=== PATIENT | male | born 2000 | race Caucasian/White ===

== ENCOUNTER → 2023-09-11 | Outpatient (CLI) | payer MEDICAID, SELFPAY ==
[2023-09-11 09:55] LABS: Bacteria 0 SEEN /hpf (None Seen); Mucous, Urine 0 SEEN /hpf (<or=2+); Squamous Epithelial Cells - UA 0 SEEN /hpf (0-5); White Blood Cells 0 SEEN /hpf (0-5)
[2023-09-11 12:00] LABS: Color, Urine Yellow (Yellow); Glucose, Dipstick Normal (Normal); Ketone-Dipstick Negative (Negative); Leukocyte Esterase-Dipstick Negative /ul (Negative); Nitrite-Dipstick Negative (Negative); Occult Blood-Urine 10 /ul (Negative); Protein-Dipstick Negative (Negative); Urine Bilirubin Dipstick Negative (Negative); Urine Clarity Clear (Clear); Urine Urobilinogen Normal (Normal)
[2023-09-11 12:00] LABS: Absolute Lymphocyte Count 1.47 X10^3/uL (0.83-4.51); Absolute Neutrophil Count 2.1 X10^3/uL (2.0-7.7); Basophil# 0.01 X10^3/uL; Basophil% 0.2 % (0-1); Eosinophil# 0.07 X10^3/uL; Eosinophils% 1.7 % (0-5); Hematocrit 46.8 % (40-54); Hemoglobin 16.1 g/dL (13.0-16.5); Lymphocyte # 1.47 X10^3/ul (0.83-4.51); Lymphocyte % 36.1 % (19-41); Mean Corp Hgb Conc 34.4 g/dL (32-36); Mean Corpuscular Hgb 31.4 pg (27.0-32.0); Mean Corpuscular Volume 91.4 fL (80-94); Mean Platelet Vol. 11.5 fl (6.2-12.0); Monocyte# 0.43 X10^3/uL; Monocyte% 10.6 % (0-10); NRBC Flagged by Analyzer 0 % (0-5); Neutrophil # 2.09 X10^3/uL (2.7-7.7); Neutrophil % 51.4 % (47-70); Platelet Count 196 K/mm3 (150-450); RBC Distribution Width CV 11.9 % (11.6-14.6); RBC Distribution Width SD 39.9 fl (35.1-43.9); Red Blood Count 5.12 M/mm3 (4.6-6.2); White Blood Count 4.1 K/mm3 (4.4-11.0)
[2023-09-11 12:17] LABS: Red Blood Cells-Urine 0-5 SEEN /hpf (0-5)
[2023-09-11 13:02] LABS: Thyroid Stim Hormone (TSH) 0.96 uIU/mL (0.358-3.74)
== END | disposition home or self-care (01) ==
LOC: MFPLAB 09:47
PROVIDERS: Visit Provider Family Medicine
DX: F17.200 Nicotine dependence, unspecified, uncomplicated (principal); F41.9 Anxiety disorder, unspecified
CPT/HCPCS: 36415; 81001; 84443; 85025

== ENCOUNTER 2024-08-12 18:54 | Emergency (ER) | payer SELFPAY ==
[2024-08-12 18:56] VITALS: BP 106/69; PULSE 55; RESP 16; TEMP 36.7; O2SAT 100; BMI 26.9
--- NOTE | 2024-08-12 19:37 | CM.ED ---
Social work Reason for referral: no PCP/self-pay insurance Referral source: case find This SW identified patient's lack of PCP and lack of insurance. This SW entered patient's [facility] treatment area, introducing self and role at [facility]. Patient accepted SW visit, confirming lack of PCP due to lack of medical insurance. Patient stated being in between jobs currently and currently without insurance. Patient declined need for Medicaid application, but accepted resource of [facility] information. Patient denied other needs at this time. Coreen Tang, CHIEF DATA OFFICER, [employer] DEVELOPER
--- NOTE | 2024-08-12 20:57 | EDS_ITS ---
HPI History of Present Illness Chief Complaint: Other, Pain/Inj Detail of Chief Complaint: Concern for possible STD exposure. No symptoms. Informant: patient Narrative Narrative: Healthy 24-year-old male. No dyspnea past medical history. Denies any prior sexually transmitted disease history. Had unprotected sex over the weekend. He is concerned he may have been exposed. He is having no symptoms. No discharge. No dysuria. No rash or lymphadenopathy. Prior similar symptoms: No Recent Illness/Hospitalization: No PFSH PFSH Medical History no medical history no medical history Allergy/AdvReac Type Severity Reaction Status Date / Time No Known Allergies Allergy Verified 08/12/24 19:01 no surgical history Social History Smoking Status: Never smoker ROS ROS ED ROS Narrative Denies any recent illness. Constitutional Constitutional ED: Denies chills or fever(s) Eyes Eyes: Denies blurry vision ENT ENT ED: Denies ear pain Cardiovascular Cardiovascular: Denies chest pain Respiratory/Chest Respiratory/Chest: Denies cough Gastrointestinal Gastrointestinal: Denies abdominal pain Genitourinary Genitourinary ED: Denies dysuria or hematuria Musculoskeletal Musculoskeletal: Denies arthralgias Integumentary Denies abscess Neurologic Neurologic: Denies headache(s) Psychiatric Psychiatric: Denies anxiety Endocrine Endocrinology: Denies polydipsia Hematologic/Lymphatic Hematologic/Lymphatic: Denies easy bleeding, easy bruising or lymphadenopathy Allergic/Immunologic Allergic/Immunologic ED: Denies mouth swelling, tongue swelling or urticaria EXAM Physical Exam Narrative Exam Narrative: 24-year-old male no acute distress. Vital signs stable afebrile. H EENT exam normal. Moist mucous membranes. No blistering. Neck nontender no lymphad enopathy. Lungs clear to auscultation bilaterally. Heart regular rhythm no murmur. Abdomen soft nontender. Moving all 4 extremities. Nontender no edema. Skin no rashes. Patient was in a hallway. He was not having any urinary symptoms and said he had no rash. I could not do a exam. Const Vital Signs: 08/12/24 18:56 08/12/24 19:31 Temperature 98.1 F Temperature Source Temporal Pulse Rate 55 L Respiratory Rate 16 Respiratory Effort Normal Non-Labored Respiratory Pattern Normal Blood Pressure 106/69 Blood Pressure Mean 81 Pulse Ox 100 Oxygen Delivery Method Room Air Positive well nourished and well developed; Negative for obese, cachectic, cont ractures or unkempt General Appearance ED: well developed and NAD; Negative for unkempt, cachectic, contractures or pallor Nutritional Appearance: Negative for cachectic or obese HEENT Reports moist mucous membranes normocephalic and atraumatic; Negative for trauma or tenderness Eyes PERRL and EOMs intact bilaterally General Eye ED: Negative for pale conjunctiva or scleral icterus Neck no lymphadenopathy, supple and no JVD General: Negative for tenderness Resp normal respiratory effort and clear to auscultation bilaterally Effort and Inspection: Negative for retractions Auscultation: Negative for rales, rhonchi, wheezes or diminished lung sounds Cardio regular rate, regular rhythm, S1 normal heart sound, S2 normal heart sound and no murmurs Rate: Negative for bradycardia or tachycardic Rhythm: Negative for abnormal rhythm Heart Sounds: Negative for other GI non-tender, non-distended and no masses Inspection: Negative for abdominal distention Auscultation: normoactive bowel sounds Palpation: soft; Negative for tender or guarding no CVA tenderness Back/Spine no CVA tenderness General Back: Negative for CVA tenderness Cervical Spine: Negative for cervical spine tenderness Thoracic Spine / Upper Back: Negative for thoracic spinal tenderness Lumbar Spine / Lower Back: Negative for lumbar spinal tenderness Extremity normal to inspection General Extremety ED: Yes tenderness; Negative for edema or pulses abnormal General Extremity: Negative for edema or pulses abnormal Neuro oriented x3, CN's II-XII intact bilaterally, moves all extremities and no focal motor deficits Sensorium / Orientation: alert, oriented to person, oriented to place and oriented to time; Negative for orientation impaired, confused or lethargic Motor Exam: strength 5/5 throughout Psych mental status grossly normal Appearance: Negative for unkempt Thought Process: normal thought process Skin General Skin Exam: Negative for jaundice or pallor Lesions: no lesions Rashes: no rashes MDM MDM MDM Narrative Medical decision making narrative: 24-year-old male concern for possible STD exposure. No symptoms. He and I discussed testing. He did not want any testing done tonight. He understood that most likely with no symptoms it was going to be negative. He understood that HIV was a send out. He states he will follow-up if he starts having any symptoms. I did offer him pretreatment with Zithromax and Rocephin and he deferred at this time. He left prior to getting any discharge paperwork. Discharge Plan Triage Chief Complaint: Other, Pain/Inj ED Provider: Raul Gayle Dx/Rx/DC Orders Clinical Impression: Concern about STD in male without diagnosis Instructions: ED Testing for Suspected STI Primary Care Provider: Care Physician,No Primary Referrals: Care Physician,No Primary [Primary Care Provider] - Selena Tejeda, AUTOMOTIVE REFINISHER-C [[facility]] - As Needed Activity Restrictions/Additional Instructions: If you want sexually transmitted disease testing follow-up with the [facility]. Print Language: Kinyarwanda Disposition Disposition: Home, Self Care
== END 2024-08-12 21:10 | disposition home or self-care (01) ==
PROVIDERS: Emergency Provider Emergency Medicine; Visit Provider Emergency Medicine
DX: Z20.2 Contact with and (suspected) exposure to infections with a predominantly sexual mode of transmission (principal)
CPT/HCPCS: 99282

== ENCOUNTER 2025-04-30 00:42 | Emergency (ER) | payer SELFPAY ==
[2025-04-30 00:43] VITALS: BP 133/84; PULSE 86; RESP 16; TEMP 36.4; O2SAT 100; BMI 24.6
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
[2025-04-30 01:00] VITALS: BP 123/83; PULSE 60; RESP 16; TEMP 36.4; O2SAT 99
--- OUTSIDE RECORDS SUMMARY | 2025-04-30 01:08 | XMS RPT_ITS | CCD ---
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 above: Order Comment: Order Date: 09/11/23 Order Info: 183- - CBCD Performed By: #### L 100.0100, L501.9520 #### [facility] [address] [place], [address] Platelets (Bld) [#/Vol] 196 10*3/uL Normal 150-450 [facility] Comment on above: Order Comment: Order Date: 09/11/23 Order Info: 183-06 - CBCD Performed By: #### L 100.0100, L501.9520 #### [facility] [address] [place], [address] Determination of erythrocyte mean corpuscular volume (MCV)Ordered By: Rahat Canela on 09-11-2023 MCV (RBC) [Entitic vol] 91.4 fL Normal 80-[address] [facility] Comment on above: Order Comment: Order Date: 09/11/23 Order Info: 183-06 - CBCD Performed By: #### L 100.0100, L501.9520 #### [facility] [address] [place], [address] Erythrocyte distribution wid th ratioOrdered By: Rahat Canela on 09-11-2023 Erythrocyte distribution width (RBC) [Ratio] 11.9 % Normal 11.6-14.6 [facility] Comment on above: Order Comment: Order Date: 09/11/23 Order Info: 183-06 - CBCD Performed By: #### L 100.0100, L501.9520 #### [facility] [address] [place], [address] Erythrocyte distribution wid th standard deviationOrdered By: Rahat Canela on 09-11-2023 Erythrocyte distribution width (RBC) [Entitic vol] 39.9 fL 35.1-43.9 [facility] Immature granulocytes/100 WB C Auto (Bld)Ordered By: Rahat Canela on 09-11-2023 Immature granulocytes/100 WBC (Bld) 0.000 % 0.0-0.9 [facility] Comment on above: IG% - Immature Granu locytes (promyelocytes, myelocytes and metamyelocytes) > 1% indicates that a LEFT SHIFT is Present. Ketones Test strip Ql (U)Ord ered By: Rahat Canela on 09-11-2023 Ketones Ql (U) Negative Negative [facility] - Hematology and Cell countsOrdered By: Rahat Canela on 09-11-2023 Nucleated RBC/100 WBC (Bld) [Ratio] 0 % 0-5 [facility] Mucus LM Ql (Urine sed)Order ed By: Rahat Canela on 09-11-2023 Mucus Ql (Urine sed) 0 SEEN /hpf [facility] Nitrite Test strip Ql (U)Ord ered By: Rahat Canela on 09-11-2023 Nitrite Ql (U) Negative Negative [facility] No Panel InformationOrdered By: Rahat Canela on 09-11-2023 Urine RBC 0-5 SEEN /hpf 0-5 [facility] Protein Test strip Ql (U)Ord ered By: Rahat Canela on 09-11-2023 Protein Ql (U) Negative Negative [facility] Serum or plasma thyroid stim ulating hormone (TSH) measurement (units/volume)Ordered By: Rahat Canela on 09-11-2023 TSH Qn 0.96 uIU/mL 0.358-3.74 [facility] Squamous epithelial cells de tection in urine sediment by light microscopyOrdered By: Rahat Canela on 09-11-2023 Epithelial cells.squamous LM Ql (Urine sed) 0 SEEN /hpf 0-5 [facility] Thyroid Stim Hormone (TSH)on 09-11-2023 TSH 0.96 uIU/mL Normal 0.358-3.74 [facility] Comment on above: Order Comment: Order Date: 09/11/23 Order Info: [id number] - TSH Performed By: #### L 100.0100, L501.9520 #### [facility] [address] [place], [address] Urinalysis, Completeon 09-10 RBC 0-5 SEEN Normal 0-5 [facility] Comment on above: Order Comment: CLEAN CATCH Performed By: #### L 400.0001 #### [facility] [address] [place], [address] BACTERIA 0 SEEN Normal None Seen [facility] Comment on above: Order Comment: CLEAN CATCH Performed By: #### L 400.0001 #### [facility] [address] [place], [address] EPI,SQUAMOUS 0 SEEN Normal 0-5 [facility] Comment on above: Order Comment: CLEAN CATCH Performed By: #### L 400.0001 #### [facility] [address] [place], [address] Mucus Ql (Urine sed) 0 SEEN Normal [facility] Comment on above: Order Comment: CLEAN CATCH Performed By: #### L 400.0001 #### [facility] [address] [place], [address] WBC 0 SEEN Normal 0-5 [facility] Comment on above: Order Comment: CLEAN CATCH Performed By: #### L 400.0001 #### [facility] [address] [place], [address] Urine blood detectionOrdered By: Rahat Canela on 09-11-2023 RBC Ql (U) 10 /ul Negative [facility] Urine clarityOrdered By: Ignacio Canela on 09-11-2023 Clarity (U) Clear Clear [facility] Urine color determinationOrd ered By: Rahat Canela on 09-11-2023 Color (U) Yellow Yellow [facility] Urine glucose detectionOrder ed By: Rahat Canela on 09-11-2023 Glucose Ql (U) Normal mg/dl Normal [facility] Urine leukocyte esterase det ection by dipstickOrdered By: Rahat Canela on 09-11-2023 Leukocyte esterase Test strip Ql (U) Negative Negative [facility] Urine pHOrdered By: Rahat anderson on 09-11-2023 pH (U) 7.0 [pH] 5.0 - 8.0 [facility] Urine sediment bacteria coun t by microscopy (number/high power field)Ordered By: Rahat Canela on 09-11-2023 Bacteria LM.HPF (Urine sed) [#/Area] 0 /[HPF] None Seen [facility] Urine specific gravity measu rementOrdered By: Rahat Canela on 09-11-2023 Specific gravity (U) [Rel density] 1.010 1.002-1.030 [facility] Urine urobilinogen measureme ntOrdered By: Rahat Canela on 09-11-2023 Urobilinogen Ql (U) Normal mg/dl Normal [facility] Incision & Drainageon 2022 Antoinette Farooq APRN CONTROL ANALYST 06/12/2023 9:04 PM Incision & Drainage Date/Time: 06/12/2023 9:03 PM Performed by: Antoinette Farooq APRN CONTROL ANALYST Authorized by: Antoinette Farooq APRN CNP Consent: Consent obtained: Verbal Consent given by: Patient Risks, benefits, and alternatives were discussed: yes Alternatives discussed: No treatment, delayed treatment, alternative treatment, observation and referral Risks discussed: Bleeding, damage to other organs, infection, incomplete drainage and pain Bacova protocol: Procedure explained and questions answered to patient or proxy's satisfaction: yes Patient identity confirmed: Verbally with patient Location: Type: Abscess Size: 3 Location: Trunk Trunk location: Back Pre-procedure details: Skin preparation: Antiseptic wash and Betadine Sedation: Sedation type: None Anesthesia: Anesthesia method: Local infiltration Local anesthetic: Lidocaine 1% w/o epi Procedure type: Complexity: Simple Procedure details: Needle aspiration: no Incision types: Single straight Incision depth: Subcutaneous Scalpel blade: 11 Wound management: Probed and deloculated and irrigated with saline Drainage: Purulent Drainage amount: Moderate Wound treatment: Wound left open Packing materials: None Post-procedure details: Patient tolerance of procedure: Tolerated well, no immediate complications [facility] WOUND CULTUREon 06-12-2023 WOUND CULTURE WOUND CULTURE 651STAPHYLOCOCCUS AUREUS 3+ Staphylococcus aureus GRAM STAIN OF CULTURE Gram positive cocci in pairs and clusters Organism ID: 1 Antibiotic Interpretation PAULA Status Oxacillin Susc Islt S <=0.25 F Clindamycin Susc Islt S 0.25 F Doxycycline Susc Islt S <=0.5 F Idania+ermC Islt/Spm Ql - Negative F levoFLOXacin Susc Islt I 4 F Tetracycline Susc Islt S <=1 F TMP SMX Susc Islt S <=10 F Vancomycin Susc Islt S 1 F ceFAZolin Susc Islt S F Susceptible [facility] Comment on above: Performed By: #### 4 [id number] #### [place] [address] [place] [address] Jaime 04-09-2023 RICH Patient: DMITRIY PANDA [id number] Location: [facility] Aount: [id number] : 2000 Age: 23 Sex M Lab NumbEr [id number] Requested by: LJ BYRD Admitdate: 04/09/23 Source: UR Collected: 04/09/23 12:23 Site: Received : 04/09/23 16:30 Culture, Urine FINAL 04/11/23 11:16 04/10/23 Performing Lab: [address] [address] Director: Lázaro Cook MD AEROBIC CULTURE RESULTS: NO BACTERIAL GROWTH Normal [facility] Comment on above: Performed By: #### M IC2 #### [address] [address] HIV SCREENon 04-09-2023 Final Interpretation NETWORK CONTRACTOR Normal [facility] Comment on above: Performed By: #### L HIV #### [address] [address] HIV 1 Ab NETWORK CONTRACTOR Normal [facility] Comment on above: Performed By: #### L HIV #### [address] [place] [address] HIV 1 RNA Qualitative NETWORK CONTRACTOR Normal [facility] Comment on above: Performed By: #### L HIV #### [address] [place] [address] HIV 2 Ab NETWORK CONTRACTOR Normal [facility] Comment on above: Performed By: #### L HIV #### [address] [place] [address] HIV Screen 4th Gen wRfx Non-Reactive Normal Non Reacti ve [facility] Comment on above: Result Comment: HIV Negative HIV-1/HIV-2 antibodies and HIV-1 p24 antigen were NOT detected. There is no laboratory evidence of HIV infection. Performed at: - [facility] [id number] [employer] Support Professionals: Saji Macdonald PhD, Phone: [phone] Performed By: #### L HIV #### [address] [id number] Interpretation: NETWORK CONTRACTOR [facility] Comment on above: Performed By: #### L HIV #### [address] [address] [facility] 04-09-2023 [facility] Chlamy trachomatis, MATILDA = Negative Neiss gonorrhoeae, MATILDA = Negative Performed at: = - [facility] [id number] [employer]: Kimmy Rob MD, Phone: [phone] Source Chlamy/GC Amp = urine Normal [facility] Comment on above: Performed By: #### M IC2 #### [address] [address] Rapid Plasma Reagin, Qnon Rapid Plasma Reagin, Qn Non-Reactive Normal NonRea<1:1 [facility] Comment on above: Result Comment: Jorge maxwell Note: This test does not meet current guidelines for screening and diagnosis of syphilis. This test is intended for following treatment response in patients being treated for syphilis infection. To screen for syphilis infection, a reflex cascade that includes both RPR and a treponema-specific assay should be utilized, such as Treponema pallidum (Syphilis) Screening Daggett (892655) or Rapid Plasma Reagin (RPR) Test With Reflex to Quantitative RPR and Confirmatory Treponema pallidum Antibodies (227105). Performed at: [address] [id number] [employer] Professionals: Saji Macdonald PhD, Phone: [phone] Performed By: #### R PRQT #### [address] [address] 2019 Novel Coronavirus (CoVI D-19), NAAon 10-25-2022 SARS-CoV-2 (COVID-19) RNA MATILDA+probe Ql (Unsp spec) Not detected Normal Not Detected [facility] Comment on above: Result Comment: This nucleic acid amplification test was developed and its performance characteristics determined by [employer]. Nucleic acid amplification tests include RT-PCR and TMA. This test has not been FDA cleared or approved. This test has been authorized by FDA under an Emergency Use Authorization (EUA). This test is only authorized for the duration of time the declaration that circumstances exist justifying the authorization of the emergency use of in vitro diagnostic tests for detection of SARS-CoV-2 virus and/or diagnosis of COVID-19 infection under section 564(b)(1) of the Act, 21 U.S.C. 360bbb-3(b) (1), unless the authorization is terminated or revoked sooner. When diagnostic testing is negative, the possibility of a false negative result should be considered in the context of a patient's recent exposures and the presence of clinical signs and symptoms consistent with COVID-19. An individual without symptoms of COVID-19 and who is not shedding SARS-CoV-2 virus would expect to have a negative (not detected) result in this assay. Performed at: [facility] [address] [id number] [employer]essionals: Saji Macdonald PhD, Phone: [phone] Performed By: #### L COV #### [address] [address] [facility]Con 08-18-2022 Erythrocyte distribution width (RBC) [Ratio] 12.7 % Normal 11.5-14.5 [facility] Comment on above: Performed By: #### 4 [id number] #### [address] Hematocrit (Bld) [Volume fraction] 45.4 % Normal 37.7-51.1 [facility] Comment on above: Performed By: #### 4 [id number] #### [address] Hemoglobin (Bld) [Mass/Vol] 15.4 g/dL Normal 12.8-17.7 [facility] Comment on above: Performed By: #### 4 [id number] #### [address] MCH (RBC) [Entitic mass] 31.6 pg Normal 27.0-34.2 [facility] Comment on above: Performed By: #### 4 [id number] #### [address] MCHC (RBC) [Mass/Vol] 33.9 g/dL Normal 31.4-36.2 [facility] Comment on above: Performed By: #### 4 [id number] #### [address] MCV (RBC) [Entitic vol] 93.2 fL Normal 80.6-99 [facility] Comment on above: Performed By: #### 4 [id number] #### [address] PLATELET COUNT 232 x10*3/uL Normal 150-400 [facility] Comment on above: Performed By: #### 4 [id number] #### [place] [address] RED BLOOD CELL COUNT 4.87 x10*6/uL Normal 3.70-5.70 [facility] Comment on above: Performed By: #### 4 [id number] #### [place] [address] WHITE BLOOD CELLS 7.4 x10*3/uL Normal 4.3-10.3 [facility] Comment on above: Performed By: #### 4 [id number] #### [place] [address] CBCOrdered By: Chase La b on 08-18-2022 Age [Time] 93.2 fL 80.6 - 99 fL [facility] Age [Time] 31.6 pg 27.0 - 34.2 pg [facility] Age [Time] 33.9 g/dL 31.4 - 36.2 g/dL [facility] Erythrocyte distribution width (RBC) [Ratio] 12.7 % 11.5 - 14.5 % [facility] Hematocrit (Bld) [Volume fraction] 45.4 % 37.7 - 51.1 % [facility] Hexanoylglycine (U) [Moles/Vol] 15.4 g/dL 12.8 - 17.7 g/dL [facility] Interpretation and review of laboratory results Normal [facility] Platelets (Bld) [#/Vol] 232 10*3/uL [facility] RBC (Bld) [#/Vol] 4.87 10*6/uL [facility] WBC LM Ql (Sput) 7.4 [facility] COMPREHENSIVE METABOLIC PANE Gaetano 08-18-2022 Albumin [Mass/Vol] 5.1 g/dL High 3.5-5.0 [facility] Comment on above: Performed By: #### 4 [id number] #### [place] [address] ALK PHOS 85 U/L Normal 24-126 [facility] Comment on above: Performed By: #### 4 [id number] #### [facility] [address] ALT [Catalytic activity/Vol] 25 U/L Normal 4-50 [facility] Comment on above: Performed By: #### 4 [id number] #### [facility] [address] [place] [id number] Anion gap [Moles/Vol] 11 mmol/L Normal 8-12 [facility] Comment on above: Performed By: #### 4 [id number] #### [facility] [address] [place] [address] AST [Catalytic activity/Vol] 26 U/L Normal 3-55 [facility] Comment on above: Performed By: #### 4 [id number] #### [facility] [address] [place] [address] Bilirubin [Mass/Vol] 0.6 mg/dL Normal 0.2-1.6 [facility] Comment on above: Performed By: #### 4 [id number] #### [facility] [address] [place] [address] [facility] Calcium [Mass/Vol] 10.5 mg/dL High 8.4-10.4 [facility] Comment on above: Performed By: #### 4 [id number] #### [facility] [address] [place] [id number] Chloride [Moles/Vol] 100 mmol/L Normal 96-109 [facility] Comment on above: Performed By: #### 4 [id number] #### [address] [address] [facility] CO2 [Moles/Vol] 31 mmol/L High 22-30 [facility] Comment on above: Performed By: #### 4 [id number] #### [facility] [address] [place] [address] [facility] Creatinine [Mass/Vol] 0.91 mg/dL Normal 0.66-1.25 [facility] Comment on above: Performed By: #### 4 [id number] #### [facility] [address] [place] [address] [facility] GLOMERULAR FILTRATION RATE ML/MIN/1.73 SQ M.PREDICTED >90.0 Normal >=60.0 [facility] Comment on above: Result Comment: eGFR calculation based on the Chronic Kidney Disease Epidemiology Collaboration (CKD-EPI) equation refit without adjustment for race. Categories in Chronic Kidney Disease (CKD) Category: GFR(mL/min/1.73m^2) Interpretation: G1* 90 or greater Normal or high G2* 60-89 Mild decrease G3a 45-59 Mild to moderate decrease G3b 30-44 Moderate to severe decrease G4 15-29 Severe decrease G5 14 or less Kidney failure *G1&G2: In the absence of evidence of kidney damage, neither GFR category G1 nor G2 fulfill the criteria for CKD Kidney Int Suppl.2013;3:1-150 Performed By: #### 4 [id number] #### [address] Glucose [Mass/Vol] 99 mg/dL Normal 65-100 [facility] Comment on above: Performed By: #### 4 [id number] #### [address] [address] [facility] Potassium [Moles/Vol] 3.9 mmol/L Normal 3.6-5.1 [facility] Comment on above: Performed By: #### 4 [id number] #### [address] [address] [facility] Protein [Mass/Vol] 8.9 g/dL High 6.3-8.2 [facility] Comment on above: Performed By: #### 4 [id number] #### [address] [address] [facility] Sodium [Moles/Vol] 142 mmol/L Normal 135-147 [facility] Comment on above: Performed By: #### 4 [id number] #### [address] [address] [facility] Urea nitrogen [Mass/Vol] 16 mg/dL Normal 8-26 [facility] Comment on above: Performed By: #### 4 [id number] #### [address] [address] [facility] GC AND CHLAMYDIA AMPLIFIED P ROBEon 08-18-2022 GC AND CHLAMYDIA AMPLIFIED PROBE GC AMPLIFIED SC Negative Negative CHLAMYDIA, DNA PROBE Negative Negative Normal Negative [facility] Comment on above: Performed By: #### 4 [id number] #### [address] [address] [facility] HEPATITIS VIRAL PANELon 07-25 HEP B CORE-M AB Non-Reactive Normal Nonreactive [facility] Comment on above: Performed By: #### 4 [id number], [id number] #### [address] HEP B SURF AG Non-Reactive Normal Nonreactive [facility] Comment on above: Performed By: #### 4 [id number], [id number] #### [address] HEPATITIS A IGM ANTIBODY Non-Reactive Normal Nonreactive [facility] Comment on above: Performed By: #### 4 [id number], [id number] #### [address] HEPATITIS C ANTIBODY Non-Reactive Normal Nonreac tive, Indeterminate [facility] Comment on above: Performed By: #### 4 [id number], [id number] #### [address] HIV ANTIBODY - GENESISon HIV-1 AND HIV-2 ANTIBODIES Non-Reactive Normal Nonreactive [facility] Comment on above: Result Comment: No d etectable HIV-1p24 Antigen or HIV-1/HIV2 antibodies. If recent HIV exposure is suspected or reported, conduct HIV-1 TRICIA or request a new specimen and repeat the algorithm according to CDC guidance, available at: http://www.cdc.gov/hiv/guidelines Guidelines and Recommendations HIV/AIDS CDC These guidelines are intended for clinicians, public health professionals, program managers in clinical and non-clinical settings, persons at risk for HIV infection, and the general public. www.cdc.gov Performed By: #### 4 [id number], [id number] #### [address] URINALYSIS WITH REFLEX CULTU REon 08-18-2022 Appearance (U) Cloudy [facility] Comment on above: Performed By: #### 4 [id number] #### [place] [address] [place] BILIRUBIN UA Negative Normal Negative [facility] Comment on above: Performed By: #### 4 [id number] #### [place] [address] [place] Color (U) Yellow Normal [facility] Comment on above: Performed By: #### 4 [id number] #### [address] [address] [place] Glucose Ql (U) Negative Normal Negative [facility] Comment on above: Performed By: #### 4 [id number] #### [address] Ketones Ql (U) Negative Normal Negative [facility] Comment on above: Performed By: #### 4 [id number] #### [address] LEUKOESTERASE Negative Normal Negative [facility] Comment on above: Performed By: #### 4 [id number] #### [address] MUCOUS-URINE Few [facility] Comment on above: Performed By: #### 4 [id number] #### [address] Nitrite Ql (U) Negative Normal Negative [facility] Comment on above: Performed By: #### 4 [id number] #### [address] NON-SQUAMOUS EPI 3 /LPF [facility] Comment on above: Performed By: #### 4 [id number] #### [address] OCCULT BLD Negative Normal [facility] Comment on above: Performed By: #### 4 [id number] #### [address] PH, URINE 5.0 [facility] Comment on above: Performed By: #### 4 [id number] #### [address] Protein Ql (U) Negative Normal [facility] Comment on above: Performed By: #### 4 [id number] #### [address] RBC LM.HPF (Urine sed) [#/Area] 4 /[HPF] Normal <=5 [facility] Comment on above: Performed By: #### 4 [id number] #### [address] SPECIFIC GRAVITY, URINE 1.027 Normal [facility] Comment on above: Performed By: #### 4 [id number] #### [address] SQUAMOUS EPI CELLS 8 /LPF Normal [facility] Comment on above: Performed By: #### 4 [id number] #### [place] [address] UROBILINOGEN UA Negative Normal <2.0 [facility] Comment on above: Performed By: #### [id number] #### VALORIE [id number] WBC LM.HPF (Urine sed) [#/Area] /[HPF] Normal <=5 [facility] Comment on above: Performed By: #### [id number] #### VALORIE [address] BILATERAL FEET MIN 3 VIEWSon 06-03-2022 BILATERAL FEET MIN 3 VIEWS EXAMINATION: 4 XRAY VIEWS OF THE BILATERAL FEET 06/01/2022 1:38 pm COMPARISON: None. HISTORY: ORDERING SYSTEM PROVIDED HISTORY: BILATERAL FOOT PAIN FINDINGS: No radiographic evidence for acute fracture or dislocation. 1st metatarsal is relatively short. Bony architecture and joint spaces maintained. IMPRESSION: Bilateral relatively short 1st metatarsal otherwise negative Normal [facility] LAB TESTon 05-21-2021 Result KIT SENT OUT [facility] Comment on above: [employer] has received the reference laboratory result report. Once scanned into [employer], the results can be viewed in [employer] under Media or Lab tab of Chart Review with the title of Lab Results Document. Test Name denzel [employer] Vital Signs Date Time Vital Sign Value Performing Clinician Facility 01-12-2024 13:09-0400 Body temperature 97.7 [degF] Dixie Magaña ENGINE WATCHMAN.CONTROL ANALYST Work Phone: [facility] 01-12-2024 13:090400 Body weight 84.2 kg Dixie Magaña ENGINE WATCHMAN.CONTROL ANALYST Work Phone: [facility] 01-12-2024 13:09-0400 Diastolic blood pressure 78 mm[Hg] Dixie Magaña ENGINE WATCHMAN.CONTROL ANALYST Work Phone: [facility] 01-12-2024 13:09-0400 Heart rate 85 /min Dixie Magaña ENGINE WATCHMAN.CONTROL ANALYST Work Phone: [facility] 01-12-2024 13:09-0400 Respiratory rate 21 /min Dixie Magaña ENGINE WATCHMAN.CONTROL ANALYST Work Phone: [facility] 01-12-2024 13:09-0400 SaO2% (BldA) [Mass fraction] 98 % Dixiejulius Magaña ENGINE WATCHMAN.CONTROL ANALYST Work Phone: [facility] 01-12-2024 13:09-0400 Systolic blood pressure 122 mm[Hg] Dixie Magaña ENGINE WATCHMAN.CONTROL ANALYST Work Phone: [facility] 12-16-2023 12:35-0400 Body temperature 97.5 [degF] Fausto Addi ENGINE WATCHMAN.CONTROL ANALYST Work Phone: [facility] 12-16-2023 12:35-0400 Body weight 85 kg Fausto Addi ENGINE WATCHMAN.CONTROL ANALYST Work Phone: [facility] 12-16-2023 12:35-0400 Diastolic blood pressure 70 mm[Hg] Fausto Addi ENGINE WATCHMAN.CONTROL ANALYST Work Phone: [facility] 12-16-2023 12:35-0400 Heart rate 61 /min Fausto Addi ENGINE WATCHMAN.CONTROL ANALYST Work Phone: [facility] 12-16-2023 12:35-0400 Respiratory rate 18 /min Fausto Addi ENGINE WATCHMAN.CONTROL ANALYST Work Phone: [facility] 12-16-2023 12:35-0400 SaO2% (BldA) [Mass fraction] 100 % Fausto Addi ENGINE WATCHMAN.CONTROL ANALYST Work Phone: [facility] 12-16-2023 12:35-0400 Systolic blood pressure 97 mm[Hg] Fausto Addi ENGINE WATCHMAN.CONTROL ANALYST Work Phone: [facility] 06-12-2023 19:49-0500 Body height 180.3 cm Abelardo Hernandez MD Work Phone: [facility] 06-12-2023 19:49-0500 Body mass index (BMI) [Ratio] 22.75 kg/m2 Abelardo Hernandez MD Work Phone: [facility] 06-12-2023 19:49-0500 Body temperature 98.71 [degF] Abelardo Hernandez MD Work Phone: Valorie Split [facility] 06-12-2023 19:49-0500 Body weight 74 kg Abelardo Hernandez MD Work Phone: [facility] 06-12-2023 19:49-0500 Diastolic blood pressure 58 mm[Hg] Abelardo Hernandez MD Work Phone: Valorie Split [facility] 06-12-2023 19:49-0500 Heart rate 90 /min Abelardo Hernandez MD Work Phone: Valorie Split [facility] 06-12-2023 19:49-0500 Respiratory rate 18 /min Abelardo Hernandez MD Work Phone: [facility] 06-12-2023 19:49-0500 SaO2% (BldA) [Mass fraction] 99 % Abelardo Hernandez MD Work Phone: [facility] 06-12-2023 19:49-0500 Systolic blood pressure 126 mm[Hg] Abelardo Hernandez MD Work Phone: Valorie Split [facility] 10-17-2022 16:03-0400 Body height 180.34 cm Heber Bales [employer] 10-17-2022 16:03-0400 Body mass index (BMI) [Ratio] 22.31 kg/m2 Heber Nii [employer] 10-17-2022 16:03-0400 Body weight 72.58 kg Heber Bales [employer] 10-17-2022 16:03-0400 Diastolic blood pressure 61 mm[Hg] Heber Bales [employer] 10-17-2022 16:03-0400 Heart rate 68 /min Heber Bales [employer] [facility] 10-17-2022 16:03-0400 Systolic blood pressure 104 mm[Hg] Heber Bales [employer] 10-17-2022 15:37-0400 Body height 180.34 cm Heber Bales [employer] 10-17-2022 15:37-0400 Body mass index (BMI) [Ratio] 22.31 kg/m2 Heber Bales [employer] 10-17-2022 15:37-0400 Body weight 72.58 kg Heber Bales [employer] 10-17-2022 15:37-0400 Diastolic blood pressure 61 mm[Hg] Heber Bales [employer] 10-17-2022 15:37-0400 Heart rate 68 /min Heber Bales [employer] 10-17-2022 15:37-0400 Systolic blood pressure 104 mm[Hg] Heber Bales [employer] 08-22-2022 13:54-0500 Body height 180.34 cm Heber Bales [employer] 08-22-2022 13:54-0500 Body mass index (BMI) [Ratio] 21.34 kg/m2 Heber Bales [employer] 08-22-2022 13:54-0500 Body weight 69.4 kg [facility]ales [facility] 08-22-2022 13:54-0500 Diastolic blood pressure 70 mm[Hg] Heber Bales [employer] 08-22-2022 13:54-0500 Heart rate 93 /min Heber Bales [employer] 08-22-2022 13:54-0500 Systolic blood pressure 110 mm[Hg] Heber Bales [employer] 08-22-2022 13:46-0500 Body height 180.34 cm Heber Bales [employer] 08-22-2022 13:46-0500 Body mass index (BMI) [Ratio] 21.34 kg/m2 Heber Bales [employer] [facility] 08-22-2022 13:46-0500 Body weight 69.4 kg Heber Bales [employer] 08-22-2022 13:46-0500 Diastolic blood pressure 70 mm[Hg] Heber Bales [employer] 08-22-2022 13:46-0500 Heart rate 93 /min [facility] 08-22-2022 13:46-0500 Systolic blood pressure 110 mm[Hg] Heber Bales [facility] [employer] [facility] 08-18-2022 20:24-0500 Respiratory rate 20 /min Cristal Espinoza MD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 time. Motor: No weakness. Psychiatric: Mood and Affect: Mood normal. Behavior: Behavior normal. Thought Content: Thought content normal. Judgment: Judgment normal. ED Course Incision & Drainage Date/Time: 06/12/2023 9:03 PM Performed by: Antoinette Farooq APRN CNP Authorized by: Antoinette Farooq APRN CNP Consent: Consent obtained: Verbal Consent given by: Patient Risks, benefits, and alternatives were discussed: yes Alternatives discussed: No treatment, delayed treatment, alternative treatment, observation and referral Risks discussed: Bleeding, damage to other organs, infection, incomplete drainage and pain [place] protocol: Procedure explained and questions answered to patient or proxy's satisfaction: yes Patient identity confirmed: Verbally with patient Location: Type: Abscess Size: 3 Location: Trunk Trunk location: Back Pre-procedure details: Skin preparation: Antiseptic wash and Betadine Sedation: Sedation type: None Anesthesia: Anesthesia method: Local infiltration Local anesthetic: Lidocaine 1% w/o epi Procedure type: Complexity: Simple Procedure details: Needle aspiration: no Incision types: Single straight Incision depth: Subcutaneous Scalpel blade: 11 Wound management: Probed and deloculated and irrigated with saline Drainage: Purulent Drainage amount: Moderate Wound treatment: Wound left open Packing materials: None Post-procedure details: Patient tolerance of procedure: Tolerated well, no immediate complications Medical Decision Making This note was constructed and dictated with the use of the [employer] voice recognition software program which may omit or change portions of the dictation, and/or substitute, homonyms and thereby alter the original intent of the dictated statement. Unintended gender changes may also be incorporated due to misinterpretation of the spoken words. Antoinette Farooq APRN CNP 06/12/232103 [facility] 06-12-2023 Hospital Discharge instructions Antoinette Farooq APRN CNP - 06/12/2023 8:56 PM EST If you develop worsening of your symptoms, difficulty breathing, numbness, tingling, weakness, changes in your vision or any other urgent concerns, please call 911 or return to the Emergency Department immediately. Please monitor for signs and symptoms of developing infection including but not limited to redness, swelling, increased pain, fevers, chills, inability to tolerate oral intake, generalized body aches, generally feeling unwell. If you develop any of the symptoms please return immediately to the emergency department for further evaluation. The following attachments cannot be sent through Care Everywhere.Abscess: Skin (Jamaican Syriac)documented in this encounter [facility] 06-12-2023 Emergency department Note ED TRIAGE NOTE: Brief History: 23 yo male with a wound to lower back over past two weeks. No fevers. No vomiting. No history of previous Orders: N/a, abscess will need I&D Cheo Stokes DO 06/12/231950 [facility] Work Phone: 06-12-2023 Emergency department Triage note Ambulates to triage with C/O wound to his lower back. Concern for spider bite or MRSA. Denies fever. Alert. Respirations easy and unlabored. Skin PWD. NAD noted. [facility] 08-18-2022 Emergency department Note Pt understood discharge instruction Pt ambulatory to lobby Resp. Unlabored, easy [facility] 08-18-2022 Emergency department Note Pt understood discharge instruction Pt ambulatory to lobby Resp. Unlabored, easy PT reports that he wants checked for STD's. Denies any symptoms at this time. A&O x3 Skin warm dry and pink. Resp easy even and unlabored. NAD noted. Dr Espinoza assesses pt in triage. documented in this encounter [facility] 08-18-2022 Hospital Discharge instructions Cristal Espinoza MD - 08/18/2022 8:13 PM EST Please follow-up with your results in care everywhere, follow-up with PCP if any tests are positive. documented in this encounter [facility] 08-18-2022 Emergency department Triage note PT reports that he wants checked for STD's. Denies any symptoms at this time. A&O x3 Skin warm dry and pink. Resp easy even and unlabored. NAD noted. Dr Espinoza assesses pt in triage. [facility] Consult note No Information to Report [facility] [address] Discharge summary No Information to Report [facility] [address] Evaluation note No Information to Report [facility] [address] Evaluation note Diagnosis Encounter for assessment of sexually transmitted disease exposure- Primary [facility] Diagnosis Abscess of lower back- Primary Cellulitis and abscess of trunk documented in this encounter [facility] noteNo assessment information available [facility] Work Phone: Evaluation note* Diagnosis Possible exposure to STD- Primary Other specified personal history presenting hazards to health documented in this encounter [facility] note* Diagnosis Hand pain, right- Primary Pain in limb Contusion of right hand, initial encounter Hand pain, right Pain in limb [facility] Diagnosis Hand pain, right Pain in limb [facility] No Information to Report [facility] [address] procedure note No Information to Report [facility] [address] progress note No Information to Report [facility] [address] reason for referral (narrative)* Wound Consultation (Routine) - Open Specialty Diagnoses / Procedures Referred By Contac t Referred To Contact Wound Care Diagnoses Abscess of lower back Antoinette Farooq APRN CONTROL ANALYST [address] [place] [address] [facility] [address] [place] [address] [place] [address] Referral ID Status Reason Start Date Expiration Date Visits Re quested Visits Authorized [id number] Open 06/12/2023 07/13/2024 1 1 [facility] for referral (narrative)* Diagnostic Procedure Only (Urgent) - Pending Review Specialty Diagnoses / Procedures Referred By Contac t Referred To Contact XR IMAGING Diagnoses Hand pain, right Procedures XR HAND GENERAL 3V PA/LAT/OBL RIGHT RADEX HAND MINIMUM 3 VIEWS Dixie Magaña APRN.CONTROL ANALYST [address] [place] [address] [place] [address] Referral ID Status Reason Start Date Expiration Date Visits Requested Visits Authorized [id number] Pending Review Auto-Generat ed Referral 01/12/2024 02/10/2025 1 1 [facility] for referral (narrative)* Diagnostic Procedure Only (Urgent) - Closed Specialty Diagnoses / Procedures Referred By Contac t Referred To Contact XR IMAGING Diagnoses Hand pain, right Procedures XR HAND GENERAL 3V PA/LAT/OBL RIGHT RADEX HAND MINIMUM 3 VIEWS Dixie Magaña APRN.CONTROL ANALYST [address] [place] [address] [place] [address] Referral ID Status Reason Start Date Expiration Date V isits Requested Visits Authorized [id number] Closed Auto-Generated Referral Clearance Not Met -Financial Clearance Bypassed 01/12/2024 02/10/2025 1 1 [facility] for visit Narrative* Diagnostic Procedure Only (Urgent) - Closed Specialty Diagnoses / Procedures Referred By Contac t Referred To Contact XR IMAGING Diagnoses Hand pain, right Procedures XR HAND GENERAL 3V PA/LAT/OBL RIGHT RADEX HAND MINIMUM 3 VIEWS Dixie Magaña APRN.CONTROL ANALYST [address] [place] [address] [place] [address] Referral ID Status Reason Start Date Expiration Date V isits Requested Visits Authorized [id number] Closed Auto-Generated Referral Clearance Not Met -Financial Clearance Bypassed 01/12/2024 02/10/2025 1 1 [facility] Advance Directives No Advanced Directives Records FoundDocuments on File Type Date Recorded 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 Advance Directives and Living Will Power of Kosher Sealer Summary Purpose Family History No Family History Records FoundNo Family History Records FoundNo Family History Records FoundNo Family History Records FoundNo Family History Records Found Additional Source Comments Care Teams (unrecognized sec tion and content) Die Cutter Relationship Specialty Start Date End Date Abelardo Cespedes MD [address] [place] [id number] PCP - General 09/01/12 Die Cutter Relationship Specialty Start Date End Date Abelardo Cespedes MD [address] [place] [id number] PCP - General 09/01/12 Die Cutter Relationship Specialty Start Date End Date Abelardo Cespedes MD [address] [place] [id number] PCP - General 09/01/12 Team Status: Inactive Member Role Status Dates Dr. Rahat Canela MD Attending Provider Active Reason for Visit (unrecogniz ed section and content) Reason Comments Exposure to STD Reason Comments Wound Check Reason Comments STD Would like a full pa nila STD check Specialty Diagnoses / Procedures Referred By Contcelestino t Referred To Contact [facility] Diagnoses STD/STI screening Procedures EST SAME DAY Self [facility] [address] [place] [address] Referral ID Status Reason Start Date Expiration Date Visits Requested Visits Authorized [id number] Pending Review Financial Clearance Required - Self Pay 12/16/2023 03/15/2024 1 1 Reason Comments Trauma Right hand pain, aft er hitting something (unrecognized sect ion and content) No Status Records FoundNo Status Records FoundNo Status Records FoundNo Status Records FoundNo Status Records Found INFORMATION SOURCE (unrecogn ized section and content) DATE CREATED AUTHOR 12/21/2022 [facility] DATE CREATED AUTHOR AUTHOR'S ORGANIZ ATION 04/16/2023 [facility] DATE CREATED AUTHOR AUTHOR'S ORGANIZ ATION [facility] CREATED AUTHOR AUTHOR'S ORGANIZ ATION 08/29/2024 [facility] DATE CREATED AUTHOR AUTHOR'S ORGANIZ ATION 04/14/2025 [facility] Scheduled Active and Recently Administ ered Medications (unrecognized section and content) Medication Order 06/10/2023 06/11/2023 06/12/2023 cephalexin (KEFLEX) capsule 500 mg (COMPLETED) 500 mg, Oral, NOW, 1 dose, On Dionna 06/12/23 at 2126, Indications: Abscess 2116 (Given - Provid er: Ethel Darnell (Valorie), MORPHOLOGY TEACHER) sulfamethoxazole-trimethoprim (BACTRIM DS) 800-160 MG per tablet 1 tablet (COMPLETED) 1 tablet, Oral, NOW, 1 dose, On Dionna 06/12/23 at 2126, Give with at least 8 oz of water., Indications: Abscess, Wound Infection 2116 (Given - Provid er: Ethel Jimenez), MORPHOLOGY TEACHER) Goals (unrecognized section and content) Goals may be documented in a n alternate section Source Comments (unrecognize d section and content) In the event this informatio n is protected by the Federal Confidentiality of Alcohol and Drug Abuse Patient Records regulations: The Federal rules restrict any use of the information to criminally investigate or prosecute any alcohol or drug abuse patient.[facility] the event this information is protected by the Federal Confidentiality of Alcohol and Drug Abuse Patient Records regulations: The Federal rules restrict any use of the information to criminally investigate or prosecute any alcohol or drug abuse patient.[facility] the event this information is protected by the Federal Confidentiality of Alcohol and Drug Abuse Patient Records regulations: The Federal rules restrict any use of the information to criminally investigate or prosecute any alcohol or drug abuse patient.[facility] FOR RECORDS PERTAINING TO PATIENTS WHO ARE OR HAVE BEEN ENROLLED IN A CHEMICAL DEPENDENCY/SUBSTANCEABUSE PROGRAM, SOME INFORMATION MAY BE OMITTED. This clinical summary was aggregated from multiple sources. Caution should be exercised in using it in the provision of clinical care. This summary normalizes information from multiple sources, and as a consequence, information in this document may materially change the coding, format and clinical context of patient data. In addition, data may be omitted in some cases. CLINICAL DECISIONS SHOULD BE BASED ON THE PRIMARY CLINICAL RECORDS. [facility] [employer] provides no warranty or guarantee of the accuracy or completeness of information in this document.
== END 2025-04-30 01:07 | disposition home or self-care (01) ==
LOC: ED 01:05
PROVIDERS: Emergency Provider Specialist/Technologist Athletic Trainer; Visit Provider Specialist/Technologist Athletic Trainer
DX: S02.5XXA Fracture of tooth (traumatic), initial encounter for closed fracture (principal); K02.9 Dental caries, unspecified; X58.XXXA Exposure to other specified factors, initial encounter; F17.290 Nicotine dependence, other tobacco product, uncomplicated; F17.210 Nicotine dependence, cigarettes, uncomplicated
CPT/HCPCS: 99284